=== PATIENT | female | born 1975 | race Two or more races ===

== ENCOUNTER 2024-12-06 14:37 | Emergency (ER) | payer OTHER ==
[~2024-12-06] VITALS: Ht 185.4 cm; Wt 96.7 kg
[2024-12-06] MEDS: HYDROcodone-ACET 10/325MG TAB PO ONE (15:30)
[2024-12-06] MEDS: KETOROLAC TROMETH 60MG/2ML VIAL IM ONE (15:30)
[2024-12-06 15:45] LABS: Hematocrit 40.8 % (36.0-46.0); Hemoglobin 13.8 g/dL (12.2-16.2); Mean Corpuscular Hemoglobin 32.7 pg (28.0-32.0); Mean Corpuscular Volume 96.4 fL (80.0-100.0); Nucleated Red Blood Cells % 0.0 %
[2024-12-06 15:52] LABS: Potassium 3.7 mmol/L (3.5-5.1); Sodium 143 mmol/L (136-145)
[2024-12-06 15:53] LABS: Anion Gap 10 (5-15); Carbon Dioxide 26 mmol/L (20-31)
[2024-12-06 15:54] LABS: Calcium 9.5 mg/dL (8.7-10.4)
--- NOTE | 2024-12-06 15:54 | DVH ---
Indication: Bilateral flank pain radiating towards the belly Technique: CT axial images of the abdomen and pelvis are obtained without contrast. Coronal and sagit татьяна reformats were obtained. Radiation Dose Information: CTDI volume is 16 mGy. Dose-length product is 188 mGy*cm Comparison: None FINDINGS: There is limited interpretation of the abdomen and pelvis without administration of intravenous contr ast. The lung bases demonstrate no pleural effusion. Adrenal glands, spleen, pancreas and liver unremarkable in shape. No CT evidence for cholelithiasis. No hydronephrosis / nephrolithiasis. Gastric distention. Small bowel loops normal in caliber. Mild bowel wall thickening of the transverse colon. Normal appendix. Abdominal aortic atherosclerotic disease. Bladder nondistended. No significant free pelvic fluid. B ilateral tubal ligation clips. No inguinal lymphadenopathy. Moderate disc protrusion at L3-4 and facet flavum hypertrophy resulting in spinal canal stenosis. IMPRESSION: Limited evaluation without contrast. Bowel wall thickening transverse colon which can be secondary to colitis, inflammatory disease recomm end colonoscopy in the nonemergent setting once acute symptoms resolve to exclude underlying colonic lesion. Atherosclerotic disease. Gastric distention. Moderate disc protrusion and facet/ flavum hypertrophy L3-4 resulting in spinal canal stenosis. This can be better characterized with MRI lumbar spine. Other findings as described.
[2024-12-06 15:57] LABS: Chloride 107 mmol/L (98-107)
[2024-12-06 15:59] LABS: BUN/Creatinine Ratio 6.1 (10.0-20.0); Blood Urea Nitrogen < 5 mg/dL (9-23); Glucose 105 mg/dL (74-106); Lipase 35 U/L (12-53)
--- NOTE | 2024-12-06 16:08 | ED.PDOC ---
Back pain HPI HPI Comments 49-year-old female who presents to the ED c/c of back pain Patient states she has been having back pain radiating to her abdomen with a past 2 days Patient rates the pain 8/10 describing the pain as sharp throbbing pain constant with no associated exacerbating or relieving factors Patient otherwise does state she has a history of degenerative disc disease with 3 bulging discs Patient otherwise denies any recent injury fall or trauma Patient in the ED otherwise denies any other symptoms at this time Vital signs were stable on arrival. Chief Complaint: Back Pain Time Seen by MD: 16:06 Reviewed Notes: Nurses Notes, Medications, Allergies Allergies: Coded Allergies: Aspirin (Verified Allergy, Unknown, 12/06/24) Information Source: Patient Mode of Arrival: Ambulatory Timing: Days Duration: Since onset Location of Back pain: (B) Lower back, (B) Lumbar Severity: Moderate Prehospital treatment: Pain Meds Quality: Aching, Sharp, Stabbing Onset: Spontaneous History of: Chronic Back Pain Associated signs and symptoms: Abdominal Pain Past Medical History PAST MEDICAL HISTORY: Denies Past Medical History (Other): DJDCipro Surgical History: Denies all surgeries HEM MARKER History: Denies all HEM MARKER Hx Family History Family History: Unknown Social History Smoker: Non-Smoker Alcohol: Denies ETOH Use Drugs: Denies Drug Use Lives In: Home Constitutional: denies: chills, diaphoresis, fatigue, fever, malaise, sweats, weakness, others EENTM: denies: blurred vision, double vision, ear bleeding, ear discharge, ear drainage, ear pain, ear ringing, eye pain, eye redness, hearing loss, mouth pain, mouth swelling, nasal discharge, nose bleeding, nose congestion, nose pain, photophobia, tearing, throat pain, throat swelling, voice changes, others Respiratory: denies: cough, hemoptysis, orthopnea, SOB at rest, shortness of breath, SOB with excertion, stridor, wheezing, others Cardiovascular: denies: chest pain, dizzy spells, diaphoresis, Dyspnea on exertion, edema, irregular heart beat, left arm pain, lightheadedness, palpitations, PND, syncope, others Gastrointestinal: reports: abdominal pain; denies: abdomen distended, blood streaked bowels, constipated, diarrhea, dysphagia, difficulty swallowing, hematemesis, melena, nausea, poor appetite, poor fluid intake, rectal bleeding, rectal pain, vomiting, others Genitourinary: denies: abnormal vagina bleeding, burning, dyspareunia, dysuria, flank pain, frequency, hematuria, incontinence, pain, , vagina discharge, urgency, others Neurological: denies: dizziness, fainting, headache, left sided numbness, left sided weakness, numbness, paresthesia, pre-existing deficit, right sided numbne ss, right sided weakness, seizure, speech problems, tingling, tremors, weakness, others Musculoskeletal: reports: back pain; denies: gout, joint pain, joint swelling, muscle pain, muscle stiffness, neck pain, others Integumetry: denies: bruises, change in color, change in hair/nails, dryness, laceration, lesions, lumps, rash, wounds, others Allergic/Immunocompromised: denies: Difficulty Healing, Frequent Infections, Hives, Itching, others Hematologic/Lymphatic: denies: anemia, blood clots, easy bleeding, easy bruising, swollen glands, others Endocrine: denies: excessive hunger, excessive sweating, excessive thirst, excessive urination, flushing, intolerance to cold, intolerance to heat, unexplained weight gain, unexplained weight loss, others Psychiatric: denies: anxiety, bipolar disorder, depression, hopeless, panic disorder, schizophrenia, sleepless, suicidal, others All Other Systems: Reviewed and Negative Physical Exam General Appearance: Moderate Distress (Moderate distress due to back and belly pain concerns.), Obese HEENT: Normal ENT Inspection, Pharynx Normal, TMs Normal Neck: Full Range of Motion, Non-Tender, Normal, Normal Inspection Respiratory: Chest Non-Tender, Lungs Clear, No Accessory Muscle Use, No Respiratory Distress, Normal Breath Sounds Cardiovascular: No Edema, No JVD, No Murmur, No Gallop, Normal Peripheral Pulses, Regular Rate/Rhythm Breast Exam: Deferred Gastrointestinal: Other (Diffuse bilateral lower back pain extending into bilateral lower abdominal quadrants. No signs of trauma. No definitive CVA tenderness.) Genitalia: Deferred Pelvic: Deferred Rectal: Deferred Extremities: No calf tenderness, Normal capillary refill, Normal inspection, Normal range of motion, Non-tender, No pedal edema Musculoskeletal : Location: Bilateral Extremity Location: Back (Diffuse bilateral lumbar tenderness to palpation throughout. No signs of trauma. No definitive step-offs noted. Patient denies any saddle paresthesia. Distal neurovascularly intact bilaterally.) Apperance: Normal Neurologic: Alert, Normal Affect, Normal Mood, No Sensory Deficits Cerebellar Function: NOT DONE Reflexes: NOT DONE Skin: Dry, Normal Color, Warm Lymphatic: No Adenopathy Was a procedure done? Was a procedure done?: No Back Pain Differential Dx Differential Diagnosis: DJD, Musculoskeletal Pain, Pyelonephritis, Strain Other Differential Diagnosis Colitis, enteritis diverticulitis kidney stone gastric ulcer lumbar radiculopathy X-Ray, Labs, Meds, VS Vital Signs Date Time Temp Pulse Resp B/P (MAP) Pulse Ox O2 Delivery O2 Flow Rate FiO2 12/06/24 16:03 98.2 96 18 113/68 (83) 96 98.2 12/06/24 14:39 98.2 102 18 125/74 98 98.2 Lab Test 12/06/24 15:35 12/06/24 13:15 Range/Units White Blood Count 8.4 4.4-10.8 10^3/uL Red Blood Count 4.23 4.0-5.20 10^6/uL Hemoglobin 13.8 12.2-16.2 g/dL Hematocrit 40.8 36.0-46.0 % Mean Corpuscular Volume 96.4 80.0-100.0 fL Mean Corpuscular Hemoglobin 32.7 H 28.0-32.0 pg Mean Corpuscular Hemoglobin Concent 33.9 32.0-36.0 g/dL Red Cell Distribution Width 13.7 11.8-14.3 % Platelet Count 357 140-450 10^3/uL Mean Platelet Volume 7.8 6.9-10.8 fL Neutrophils (%) (Auto) 73.3 37.0-80.0 % Lymphocytes (%) (Auto) 19.7 10.0-50.0 % Monocytes (%) (Auto) 5.4 0.0-12.0 % Eosinophils (%) (Auto) 0.5 0.0-7.0 % Basophils (%) (Auto) 1.1 0.0-2.0 % Neutrophils # (Auto) 6.2 1.6-8.6 10 ^3/uL Lymphocytes # (Auto) 1.7 0.4-5.4 10 ^3/uL Monocytes # (Auto) 0.5 0-1.3 10 ^3/uL Eosinophils # (Auto) 0 0-0.8 10 ^3/uL Basophils # (Auto) 0.1 0-0.2 10 ^3/uL Nucleated Red Blood Cells 0.0 % Sodium Level 143 136-145 mmol/L Potassium Level 3.7 3.5-5.1 mmol/L Chloride Level 107 98-107 mmol/L Carbon Dioxide Level 26 20-31 mmol/L Anion Gap 10 5-15 Blood Urea Nitrogen < 5 L 9-23 mg/dL Creatinine 0.82 0.550-1.02 mg/dL Glomerular Filtration Rate Calc 88 >90 mL/min BUN/Creatinine Ratio 6.1 L 10.0-20.0 Serum Glucose 105 74-106 mg/dL Calcium Level 9.5 8.7-10.4 mg/dL Lipase 35 12-53 U/L Urine Color Colorless Yellow Urine Clarity Clear Clear Urine pH 6.5 5.0-9.0 Urine Specific [place] 1.003 1.001-1.035 Urine Protein Negative Negative Urine Ketones Negative Negative Urine Blood Negative Negative /uL Urine Nitrite Negative Negative Urine Bilirubin Negative Negative Urine Urobilinogen Normal Negative mg/dL Urine Leukocyte Esterase Negative Negative /uL Urine RBC None seen 0 - 4 /hpf Urine Microscopic WBC < 1 0-5 /HPF Urine Squamous Epithelial Cells Few <5 /hpf Urine Bacteria Few H None Seen /hpf Urine Glucose Normal Normal mg/dL Current Medications Medications (Trade) Dose Ordered Sig/Carlo Route Start Time Stop Time Status Last Admin Ketorolac Tromethamine (Toradol Injection) 30 mg ONCE ONCE IM 12/06/24 15:30 12/06/24 15:31 DC 12/06/24 15:30 [place] [id number] Ph: [phone] DIAGNOSTIC IMAGING Diagnostic Imaging Report : [id number] Signed PATIENT: YONG DOAN ACCT: [id number] UNIT: [id number] : 1975 LOC: ER ROOM / BED: / AGE / SEX: 49 / F ADM STATUS: REG ER SERVICE [id number] ORDERING PHYSICIAN: ALBERTO SANDOVAL PAC PROCEDURE(s): ABPL - CT AB PEL WO CON-NO ORAL OR IV REASON: Bilateral flank pain radiating towards the belly ORDER NUMBER(s): [id number], ACCESSION NUMBER(s): [id number] Indication: Bilateral flank pain radiating towards the belly Technique: CT axial images of the abdomen and pelvis are obtained without contrast. Coronal and sagittal reformats were obtained. Radiation Dose Information: CTDI volume is 16 mGy. Dose-length product is 188 mGy*cm Comparison: None FINDINGS: There is limited interpretation of the abdomen and pelvis without administration of intravenous contrast. The lung bases demonstrate no pleural effusion. Adrenal glands, spleen, pancreas and liver unremarkable in shape. No CT evidence for cholelithiasis. No hydronephrosis / nephrolithiasis. Gastric distention. Small bowel loops normal in caliber. Mild bowel wall thickening of the transverse colon. Normal appendix. Abdominal aortic atherosclerotic disease. Bladder nondistended. No significant free pelvic fluid. Bilateral tubal ligation clips. No inguinal lymphadenopathy. Moderate disc protrusion at L3-4 and facet flavum hypertrophy resulting in spinal canal stenosis. IMPRESSION: Limited evaluation without contrast. Bowel wall thickening transverse colon which can be secondary to colitis, inflammatory disease recommend colonoscopy in the nonemergent setting once acute symptoms resolve to exclude underlying colonic lesion. Atherosclerotic disease. Gastric distention. Moderate disc protrusion and facet/ flavum hypertrophy L3-4 resulting in spinal canal stenosis. This can be better characterized with MRI lumbar spine. Other findings as described. ATED BY: LUIS MANUEL SIERRA MD DICTATED DATE/TIME: 12/06/241554 SIGNED BY: LUIS MANUEL SIERRA MD SIGNED DATE/TIME: 12/06/241554 CC: X-Ray, Labs, Meds, VS Comment All studies performed the ED were evaluated by me personally. Serum and urinalysis were all unremarkable for any acute process. CT of the abdomen and pelvis revealed a probable colitis event as well as a concerning spinal stenosis notation. Patient has been advised to follow up with the primary care provider for orthopedic referral and evaluation. Advised medication to be utilized for the colitis as directed. Good hydration and healthy nutrition throughout. Time of 1ST Reevaluation: 19:01 Reevaluation 1ST: Improved Consultation: PCP, GI, Other (Spinal specialist) Patient Education/Counseling: Diagnosis, Treatment Family Education/Counseling: Diagnosis, Treatment, No Family Present SEPSIS Sepsis Screen Date sepsis recognized/suspect: Dec 06, 2024 Time Sepsis recognized/suspect: 1443 Recent Procedure: No Respiratory Rate >20: No Heart Rate >90: Yes Temp<36 C (96.8 F) or >38.3 C: No SBP <90 or MAP <65 mmHG: No New Acute Mental Status Change: No Is the patient on CPAP, BIPAP,: No Physician Orders Ct Ab Pel Wo Con-No Oral Or Iv (12/06/24 15:17) Vital Signs Date Time Temp Pulse Resp B/P (MAP) Pulse Ox O2 Delivery O2 Flow Rate FiO2 12/06/24 16:03 98.2 96 18 113/68 (83) 96 98.2 12/06/24 14:39 98.2 102 18 125/74 98 98.2 Laboratory Tests Test 12/06/24 15:35 White Blood Count 8.4 10^3/uL (4.4-10.8) Medications Medications Dose Ordered Sig/Carlo Route Start Time Stop Time Status Last Admin Dose Admin Ketorolac Tromethamine 30 mg ONCE ONCE IM 12/06/24 15:30 12/06/24 15:31 DC 12/06/24 15:30 Departure 1 Departure Time of Disposition: 19:01 Impression: Primary Impression: Colitis Additional Impression: Spinal stenosis Disposition: HOME / SELF CARE / HOMELESS Condition: Stable Additional Instructions: Advised patient utilize pain medication as needed for symptomatic relief. Patient should practice a light diet for the next few days including broth and simple foods such as rice. Patient will need to follow up with her primary care provider for discussions related to GI and spinal stenosis concerns. e-Prescriptions Ondansetron Odt 4MG Tab (ZOFRAN PO) 4 Mg Tb 4 MG PO Q6HP PRN, #15 TAB ODT TAB-DISSOLVE IN MOUTH, THEN SWALLOW Prov: ALBERTO SANDOVAL PAC 12/06/24 Dicyclomine Hcl (BENTYL CAPSULE) 10 Mg Cp 1 CAP PO Q6HPRN, #15 CAP 0 Refills Prov: ALBERTO SANDOVAL PAC 12/06/24 Hydrocodone-Acetaminophen (Hydrocodone Bitartrate/AC 10-325 mg) 1 Tab Tab 1 TAB PO Q8HP PRN, #12 TAB Prov: ALBERTO SANDOVAL PAC 12/06/24 Discharged With: Self, Friend Critical Care Note Critical Care Time?: No Stability Stability form required: No Heart Score Heart Score: Heart Score Response (Comments) Value History N/A 0 EKG N/A 0 Age N/A 0 Risk Factors N/A 0 Troponin N/A 0 Total 0 I personally scribed for ALBERTO SANDOVAL PAC ([email or web address]) on 12/06/24 at 16:08. Electronically submitted by Lyndsey Martinez ([email or web address]). ALBERTO SANDOVAL PAC Dec 06, 2024 16:08
[2024-12-06 17:58] LABS: Urine Protein, UAD Negative (Negative)
[2024-12-06] MEDS ORDERED: ZOFR4T PO (19:04)
[2024-12-06] MEDS ORDERED: HYDR-4798 PO (19:04)
[2024-12-06] MEDS ORDERED: DICY10CA PO (19:04)
[2024-12-06 19:25] VITALS: PULSE 70; RESP 18; O2SAT 99
[2024-12-06 19:33] VITALS: BP 124/79; PULSE 70; RESP 18; TEMP 97.7; O2SAT 99
== END 2024-12-06 19:40 | disposition home or self-care (01) ==
LOC: ER 14:37
DX: K52.9 Noninfective gastroenteritis and colitis, unspecified (principal); M48.061 Spinal stenosis, lumbar region without neurogenic claudication; Z98.890 Other specified postprocedural states; Z88.6 Allergy status to analgesic agent
CPT/HCPCS: 36415; 74176; 80048; 81001; 83690; 85025; 96372; 99285; J1100; J1885